=== PATIENT | male | born 1955 | race Caucasian/White ===

== ENCOUNTER → 2024-02-10 | Day surgery (SDC) | payer OTHER ==
[~2024-02-10] VITALS: Ht 170.2 cm; Wt 100.0 kg
[~2024-02-10] MED LIST: CHOL100062 PO; CHONDR SULF A SOD/HYALURONATE 1.05 ML KIT IO ONE; CYAN500T56 PO; FAMO20 PO; FERR325T23 PO; FentaNYL CITRATE PF 100 MCG/2 ML VIAL ONE; KETOROLAC TROMETHAMINE 0.5% 5 ML OPHTHALMIC SOLUTION ONE; MAGN400T25 PO; METF-1211 PO; MIDAZOLAM HCL 2 MG/2 ML VIAL ONE; MOXIFLOXACIN HCL 0.5% 3 ML OPHTHALMIC SOLUTION ONE; PHENYLEPHRINE HCL 2.5% 2 ML OPHTHALMIC SOLUTION ONE; RINGERS SOLUTION,LACTATED 500 ML IV ONE; TROPICAMIDE 1% 2 ML OPHTHALMIC SOLUTION ONE
[2024-02-10] MEDS: MOXIFLOXACIN HCL 0.5% 3 ML OPHTHALMIC SOLUTION OS SCH (11:48)
[2024-02-10] MEDS: KETOROLAC TROMETHAMINE 0.5% 5 ML OPHTHALMIC SOLUTION OS SCH (11:48)
[2024-02-10] MEDS: PHENYLEPHRINE HCL 2.5% 2 ML OPHTHALMIC SOLUTION OS SCH (11:48)
[2024-02-10] MEDS: TROPICAMIDE 1% 2 ML OPHTHALMIC SOLUTION OS SCH (11:48)
[2024-02-10] MEDS: RINGERS SOLUTION,LACTATED 500 ML IV ONE (12:23)
[2024-02-10 12:35] LABS: GLUCOMETER DEV NAME(LOC) SDS.; GLUCOSE,POINT OF CARE 115 MG/DL (70-110)
[2024-02-12] MEDS: BALANCED SALT 15 ML OPHTHALMIC IRRIG.SOLN ONE (15:18)
[2024-02-12] MEDS: LIDOCAINE/PF 1% 2 ML VIAL ONE (15:19)
[2024-02-12] MEDS: EPINEPHrine 1:1,000 [1 MG/ML] VIAL ONE (15:19)
[2024-02-12] MEDS: POVIDONE-IODINE 5% 30 ML OPHTHALMIC SOLUTION ONE (15:21)
[2024-02-12] MEDS: TETRACAINE HCL/PF 0.5% 4 ML OPHTHALMIC SOLUTION ONE (15:22)
== END | disposition home or self-care (01) ==
LOC: SURGERY 09:51
PROVIDERS: ATTEND Ophthalmology
DX: H25.12 Age-related nuclear cataract, left eye (principal); M19.90 Unspecified osteoarthritis, unspecified site; Z87.891 Personal history of nicotine dependence; Z98.890 Other specified postprocedural states
CPT/HCPCS: 93005; 66984; 82962; J7321; J0171; J3010; J3490; J2250; J7120; V2632

== ENCOUNTER 2024-08-10 08:50 | Day surgery (SDC) | payer MEDICARE, OTHER ==
[~2024-08-10] VITALS: Ht 170.2 cm; Wt 100.0 kg
[~2024-08-10 08:50] MED LIST changes: -CHONDR SULF A SOD/HYALURONATE 1.05 ML KIT IO ONE
[2024-08-10] MEDS ORDERED: CHONDR SULF A SOD/HYALURONATE 1.05 ML KIT IO ONE (08:51)
[2024-08-10] MEDS: TROPICAMIDE 1% 2 ML OPHTHALMIC SOLUTION OD SCH (09:47)
[2024-08-10] MEDS: RINGERS SOLUTION,LACTATED 500 ML IV ONE (09:47)
[2024-08-10] MEDS: PHENYLEPHRINE HCL 2.5% 2 ML OPHTHALMIC SOLUTION OD SCH (09:48)
[2024-08-10] MEDS: KETOROLAC TROMETHAMINE 0.5% 5 ML OPHTHALMIC SOLUTION OD SCH (09:48)
[2024-08-10] MEDS: MOXIFLOXACIN HCL 0.5% 3 ML OPHTHALMIC SOLUTION OD SCH (09:49)
[2024-08-10] MEDS: TETRACAINE HCL/PF 0.5% 4 ML OPHTHALMIC SOLUTION ONE (10:05)
[2024-08-10] MEDS: EPINEPHrine 1:1,000 [1 MG/ML] VIAL ONE (10:15)
[2024-08-10] MEDS: BALANCED SALT 15 ML OPHTHALMIC IRRIG.SOLN ONE (10:15)
[2024-08-10] MEDS: LIDOCAINE/PF 1% 2 ML VIAL ONE (10:16)
[2024-08-10] MEDS: POVIDONE-IODINE 5% 30 ML OPHTHALMIC SOLUTION ONE (10:16)
[2024-08-10 10:20] LABS: GLUCOMETER DEV NAME(LOC) SDS.; GLUCOSE,POINT OF CARE 91 MG/DL (70-110)
== END 2024-08-10 13:51 | disposition home or self-care (01) ==
LOC: SURGERY 08:50
PROVIDERS: ATTEND Ophthalmology
DX: E11.36 Type 2 diabetes mellitus with diabetic cataract (principal); H25.11 Age-related nuclear cataract, right eye; Z79.899 Other long term (current) drug therapy; Z87.891 Personal history of nicotine dependence; Z98.42 Cataract extraction status, left eye; Z98.890 Other specified postprocedural states
CPT/HCPCS: 66984; 82962; 93005; J7321; J0171; J3010; J3490; J2250; J7120; V2632